=== PATIENT | male | born 1965 | race Caucasian/White ===

== ENCOUNTER 2020-04-04 13:50 | Emergency (ER) | payer MEDICARE, OTHER ==
[2020-04-04] MEDS ORDERED: HYDROCODONE/ACETAMINOPHEN 5-325 MG TABLET PO ONE (14:26)
[2020-04-04] MEDS ORDERED: DIPH/PERTUSS(ACELL)/TETANUS VAC/PF 0.5 ML SYR (>=10YO) IM ONE (14:26)
[2020-04-04] MEDS ORDERED: LIDOCAINE 1% INJ-PF (10 MG/ML) 30 ML SDV INJ ONE (14:27)
--- NOTE | 2020-04-04 14:29 | ER Document Report ---
ED Medical Screen (RME) - General Chief Complaint: Fall Injury Stated Complaint: FALL/LACERATION TO LEFT ELBOW Time Seen by Provider: 04/04/20 14:26 Mode of Arrival: Ambulatory Information source: Patient Notes: Patient is a 54-year-old male coming in today for blunt trauma to his left elbow. Resulting 3 cm laceration. Last tetanus booster unknown: Believed to be at least 5 years or possibly more. Thinks some left shoulder pain as well as pain in the left elbow. Denies head injury. General: No acute distress Pulmonary no respiratory distress Musculoskeletal 3 cm laceration over the left elbow, left elbow diffuse tenderness to palpation. Left shoulder diffuse tenderness to palpation. Good range of motion of left shoulder and left elbow. Neurovascularly intact I have greeted and performed a rapid initial assessment of this patient. A comprehensive ED assessment and evaluation of the patient, analysis of test results and completion of the medical decision making process will be conducted by additional ED providers. - Related Data Allergies/Adverse Reactions: prednisone Allergy (Verified 04/04/20 14:25) Past Medical History - Social History Chew tobacco use (# tins/day): No Frequency of alcohol use: None Drug Abuse: None Physical Exam - Vital signs Vitals: Temp Pulse Resp BP Pulse Ox 97.6 F 79 16 123/74 100 04/04/20 13:55 04/04/20 13:55 04/04/20 13:55 04/04/20 13:55 04/04/20 13:55 Course - Vital Signs Vital signs: Temp Pulse Resp BP Pulse Ox 97.6 F 79 16 123/74 100 04/04/20 13:55 04/04/20 13:55 04/04/20 13:55 04/04/20 13:55 04/04/20 13:55
--- NOTE | 2020-04-04 14:54 | RADIOLOGY REPORT (SQ) ---
EXAM DESCRIPTION: ELBOW LEFT OVER 2 VIEWS IMAGES COMPLETED DATE/TIME: 04/04/2020 2:45 pm REASON FOR STUDY: fall from 6 ft onto left elbow COMPARISON: None. NUMBER OF VIEWS: Four views. TECHNIQUE: AP, lateral, and both oblique radiographic images acquired of the left elbow. LIMITATIONS: None. FINDINGS: MINERALIZATION: Normal. BONES: No acute fracture or dislocation. No worrisome bone lesions. JOINT: No effusion. SOFT TISSUES: No soft tissue swelling. No foreign body. OTHER: No other significant finding. IMPRESSION: NEGATIVE STUDY OF THE LEFT ELBOW. NO RADIOGRAPHIC EVIDENCE OF ACUTE INJURY. TECHNICAL DOCUMENTATION: JOB ID: [id number] 2010 [employer]- All Rights Reserved Reading location - IP/workstation name: [email or web address]
--- NOTE | 2020-04-04 14:56 | RADIOLOGY REPORT (SQ) ---
EXAM DESCRIPTION: SHOULDER LEFT 2 OR MORE VIEWS IMAGES COMPLETED DATE/TIME: 04/04/2020 2:45 pm REASON FOR STUDY: fall from 6 ft onto left elbow COMPARISON: None. NUMBER OF VIEWS: Three views. TECHNIQUE: Internal rotation, external rotation, and Y view images acquired of the left shoulder. LIMITATIONS: None. FINDINGS: MINERALIZATION: Normal. BONES: No acute fracture. No worrisome bone lesions. JOINTS: No dislocation. VISUALIZED LUNGS AND RIBS: No pneumothorax. No rib fracture. SOFT TISSUES: No radiopaque foreign body. OTHER: No other significant finding. IMPRESSION: NEGATIVE STUDY OF THE LEFT SHOULDER. NO RADIOGRAPHIC EVIDENCE OF ACUTE INJURY. TECHNICAL DOCUMENTATION: JOB ID: [id number] 2010 [employer]- All Rights Reserved Reading location - IP/workstation name: [email or web address]
--- NOTE | 2020-04-04 15:51 | ER Document Report ---
ED General - General Chief Complaint: Fall Injury Stated Complaint: FALL/LACERATION TO LEFT ELBOW Time Seen by Provider: 04/04/20 14:26 Mode of Arrival: Ambulatory Information source: Patient Notes: 54-year-old male coming in today with left elbow injury. He fell about 6 feet off a ladder onto his left elbow. Has a 3 cm elbow laceration. Also has little bit of pain in his shoulder. Denies back pain. Denies chest pain. Denies abdominal pain. Denies head injury. He is not anticoagulated. - Related Data Allergies/Adverse Reactions: prednisone Allergy (Verified 04/04/20 14:25) Past Medical History - General Information source: Patient - Social History Smoking Status: Current Every Day Smoker Chew tobacco use (# tins/day): No Frequency of alcohol use: None Drug Abuse: None Family History: Reviewed & Not Pertinent Patient has homicidal ideation: No Review of Systems - Review of Systems Notes: Constitutional: No fevers. No chills. EENT: No eye redness. No eye pain. No ear pain. No sore throat. Cardiovascular: No chest pain. No palpitations. Respiratory: No cough. No shortness of breath. No respiratory distress. Gastrointestinal: No abdominal pain. No nausea, vomiting, or diarrhea. Genitourinary: Atraumatic. No lesions. No pain. No discharge. Musculoskeletal: Positive for left elbow and left shoulder pain. Positive for left elbow laceration Skin: No rash or lesions. Lymphatic: No swollen lymph nodes. Neurologic: No headache. No syncope. Psychiatric: No suicidal or homicidal ideation. Physical Exam - Vital signs Vitals: Temp Pulse Resp BP Pulse Ox 97.6 F 79 16 123/74 100 04/04/20 13:55 04/04/20 13:55 04/04/20 13:55 04/04/20 13:55 04/04/20 13:55 - Notes Notes: General: Well-developed, well-nourished. In no acute distress. Non-toxic appearing. Cardiac: Well-perfused. Regular rate and rhythm. No murmurs, rubs, or gallops. Pulmonary: No respiratory distress. No cyanosis. Bilateral lung [place] are clear to auscultation. Abdominal: Non-distended. Non-rigid. Bowels sounds are present in all four quadrants. No guarding or rebound. HEENT: Head is atraumatic. Conjunctivae not reddened. No tearing. PERRL. EOMI. Orbits atraumatic. No periorbital swelling or erythema. Oropharynx is without erythema, swelling, or exudates. Neck: Supple. No adenopathy. No meningismus. Dermatologic: Warm with good turgor. No rash. Atraumatic. Chest: Atraumatic. No chest wall tenderness to palpation. Musculoskeletal: 4 cm left elbow laceration. No active bleeding. Diffuse elbow tenderness to palpation without deformity. Good range of motion. Left shoulder examined. No bony deformity. Good range of motion diffuse tenderness to palpation. Distal neurovascular exam is intact Genitourinary: Examination deferred Neurologic: No gross neurologic deficits. Psychiatric: Normal mood. Course - Re-evaluation Re-evalutation: 04/04/20 16:08 Left shoulder and left elbow films are negative. - Vital Signs Vital signs: Temp Pulse Resp BP Pulse Ox 97.6 F 79 16 123/74 100 04/04/20 13:55 04/04/20 13:55 04/04/20 13:55 04/04/20 13:55 04/04/20 13:55 - Diagnostic Test Radiology reviewed: Reports reviewed Procedures - Laceration/Wound Repair Left Elbow Time completed: 16:09 Wound length (cm): 4 Wound's Depth, Shape: Irregular Laceration pre-procedure: Sterile PPE donned, Chloraprep applied, Sterile drapes applied Anesthetic type: 1% Lidocaine Volume Anesthetic (mLs): 8 Wound explored: Clean, No foreign body removed Wound Repaired With: Harpreet Number of Sutures: 8 Layer Closure?: No Post-procedure wound care: Sterile dressing applied Complications: Yes Discharge - Discharge Clinical Impression: Shoulder injury Qualifiers: Encounter type: initial encounter Laterality: left Qualified Code(s): S49.92XA - Unspecified injury of left shoulder and upper arm, initial encounter Elbow laceration Qualifiers: Encounter type: initial encounter Laterality: left Qualified Code(s): S51.012A - Laceration without foreign body of left elbow, initial encounter Condition: Good Disposition: HOME, SELF-CARE Instructions: Antibiotic Ointment Protection ([facility]), Laceration Care ([facility]), Oral Narcotic Medication ([facility]), Tetanus Immunization Given ([facility]), Soap Cleansing ([facility]) Additional Instructions: Harpreet need to come out and 10 days. Motrin or Aleve for pain and inflammation. [place] as needed for severe pain only. Return if any concerns
[2020-04-04] MEDS ORDERED: HYDROCODONE/ACETAMINOPHEN 5-325 MG (6 TAB/ER DISP) PO PRN (16:11)
[2020-04-04 16:33] VITALS: BP 115/67
== END 2020-04-04 16:33 | disposition home or self-care (01) ==
LOC: ER 13:50
DX: S51.012A Laceration without foreign body of left elbow, initial encounter (principal); S49.92XA Unspecified injury of left shoulder and upper arm, initial encounter; W11.XXXA Fall on and from ladder, initial encounter; F17.200 Nicotine dependence, unspecified, uncomplicated; Z23 Encounter for immunization
CPT/HCPCS: 99284; 90471; 73080; 73030; 90715; 12002; J3490; A9270 ×2